=== PATIENT | female | born 1970 | race Caucasian/White ===

== ENCOUNTER 2019-04-14 19:27 | Emergency (ER) | payer MEDICARE, MEDICAID ==
[~2019-04-14] VITALS: Ht 170.2 cm; Wt 88.5 kg
[2019-04-14 20:22] LABS: BASO % 1 % (0-3); EOS # 0.2 x10^3/uL (0.0-0.7); EOS % 2 % (0-3); HEMATOCRIT 39.4 % (36.0-47.0); HEMOGLOBIN 13.2 g/dL (12.0-15.5); LYMPH # 0.9 x10^3/uL (1.0-4.8); LYMPH % 13 % (24-48); MEAN CORPUSCULAR HEMOGLOBIN 36 pg (25-35); MEAN CORPUSCULAR HGB CONC 34 g/dL (31-37); MEAN CORPUSCULAR VOLUME 106 fL (79-100); MONO # 0.9 x10^3/uL (0.0-1.1); MONO % 13 % (0-9); NEUT # 4.9 x10^3uL (1.8-7.7); NEUT % 71 % (31-73); PLATELET COUNT 125 x10^3/uL (140-400); RED BLOOD COUNT 3.72 x10^6/uL (3.50-5.40); RED CELL DISTRIBUTION WIDTH 16.3 % (11.5-14.5); WHITE BLOOD COUNT 6.9 x10^3/uL (4.0-11.0)
[2019-04-14 20:33] LABS: CALCIUM 9.3 mg/dL (8.5-10.1); CREATININE 4.6 mg/dL (0.6-1.0); GFR 10.3; POTASSIUM 4.1 mmol/L (3.5-5.1)
[2019-04-14 20:38] LABS: ALBUMIN 3.2 g/dL (3.4-5.0); ALBUMIN/GLOBULIN RATIO 0.7 (1.0-1.7); MAGNESIUM 1.8 mg/dL (1.8-2.4); TOTAL BILIRUBIN 0.4 mg/dL (0.2-1.0); TOTAL PROTEIN 7.8 g/dL (6.4-8.2)
[2019-04-14 20:47] LABS: CREATINE KINASE 74 U/L (26-192)
[2019-04-14] MEDS ORDERED: ERYT1OIN6 OP (20:56)
--- NOTE | 2019-04-14 20:56 | PHYS DOC ---
Past Medical History Past Medical History: Diabetes-Type II, Hypertension, Hypotension, Other Additional Past Medical Histor: PANCREAS TRANSPLANT Past Surgical History: Tonsillectomy, Other Additional Past Surgical Histo: PANCREAS TRANSPLANT Alcohol Use: None Drug Use: None Adult General Chief Complaint Chief Complaint: DIZZY/LIGHT HEADED HPI HPI Patient is a 48 year old [f__sex] who presents with [] Review of Systems Review of Systems Constitutional: Denies fever or chills [] Eyes: Denies change in visual acuity, redness, or eye pain [] HENT: Denies nasal congestion or sore throat [] Respiratory: Denies cough or shortness of breath [] Cardiovascular: No additional information not addressed in HPI [] GI: Denies abdominal pain, nausea, vomiting, bloody stools or diarrhea [] : Denies dysuria or hematuria [] Musculoskeletal: Denies back pain or joint pain [] Integument: Denies rash or skin lesions [] Neurologic: Denies headache, focal weakness or sensory changes [] Endocrine: Denies polyuria or polydipsia [] All other systems were reviewed and found to be within normal limits, except as documented in this note. Physical Exam Physical Exam Constitutional: Well developed, well nourished, no acute distress, non-toxic appearance. [] HENT: Normocephalic, atraumatic, bilateral external ears normal, oropharynx moist, no oral exudates, nose normal. [] Eyes: PERRLA, EOMI, conjunctiva normal, no discharge. [] Neck: Normal range of motion, no tenderness, supple, no stridor. [] Cardiovascular:Heart rate regular rhythm, no murmur [] Lungs & Thorax: Bilateral breath sounds clear to auscultation [] Abdomen: Bowel sounds normal, soft, no tenderness, no masses, no pulsatile masses. [] Skin: Warm, dry, no erythema, no rash. [] Back: No tenderness, no CVA tenderness. [] Extremities: No tenderness, no cyanosis, no clubbing, ROM intact, no edema. [] Neurologic: Alert and oriented X 3, normal motor function, normal sensory function, no focal deficits noted. [] Psychologic: Affect normal, judgement normal, mood normal. [] Current Patient Data Vital Signs Vital Signs Date Time Temp Pulse Resp B/P (MAP) Pulse Ox O2 Delivery O2 Flow Rate FiO2 5/31/19 19:56 97.9 79 16 102/64 (77) 94 Room Air 97.9 Lab Values Laboratory Tests Test 04/14/19 20:11 White Blood Count 6.9 x10^3/uL (4.0-11.0) Red Blood Count 3.72 x10^6/uL (3.50-5.40) Hemoglobin 13.2 g/dL (12.0-15.5) Hematocrit 39.4 % (36.0-47.0) Mean Corpuscular Volume 106 fL (79-100) H Mean Corpuscular Hemoglobin 36 pg (25-35) H Mean Corpuscular Hemoglobin Concent 34 g/dL (31-37) Red Cell Distribution Width 16.3 % (11.5-14.5) H Platelet Count 125 x10^3/uL (140-400) L Neutrophils (%) (Auto) 71 % (31-73) Lymphocytes (%) (Auto) 13 % (24-48) L Monocytes (%) (Auto) 13 % (0-9) H Eosinophils (%) (Auto) 2 % (0-3) Basophils (%) (Auto) 1 % (0-3) Neutrophils # (Auto) 4.9 x10^3uL (1.8-7.7) Lymphocytes # (Auto) 0.9 x10^3/uL (1.0-4.8) L Monocytes # (Auto) 0.9 x10^3/uL (0.0-1.1) Eosinophils # (Auto) 0.2 x10^3/uL (0.0-0.7) Basophils # (Auto) 0.0 x10^3/uL (0.0-0.2) Sodium Level 141 mmol/L (136-145) Potassium Level 4.1 mmol/L (3.5-5.1) Chloride Level 97 mmol/L (98-107) L Carbon Dioxide Level 37 mmol/L (21-32) H Anion Gap 7 (6-14) Blood Urea Nitrogen 33 mg/dL (7-20) H Creatinine 4.6 mg/dL (0.6-1.0) H Estimated GFR (Cockcroft-Gault) 10.3 BUN/Creatinine Ratio 7 (6-20) Glucose Level 145 mg/dL (70-99) H Calcium Level 9.3 mg/dL (8.5-10.1) Magnesium Level 1.8 mg/dL (1.8-2.4) Total Bilirubin 0.4 mg/dL (0.2-1.0) Aspartate Amino Transferase (AST) 21 U/L (15-37) Alanine Aminotransferase (ALT) 19 U/L (14-59) Alkaline Phosphatase 83 U/L (46-116) Creatine Kinase 74 U/L (26-192) Creatine Kinase MB (Mass) 1.7 ng/mL (0.0-3.6) Creatine Kinase MB Relative Index % (0-4) Troponin I Quantitative 0.017 ng/mL (0.000-0.055) Total Protein 7.8 g/dL (6.4-8.2) Albumin 3.2 g/dL (3.4-5.0) L Albumin/Globulin Ratio 0.7 (1.0-1.7) L Laboratory Tests 04/14/19 20:11 Laboratory Tests 04/14/19 20:11 EKG EKG @1931 NSR at 79bpm, nonspecific t wave inversion aVL Radiology/Procedures Radiology/Procedures [] Course & Med Decision Making Course & Med Decision Making Pertinent Labs and Imaging studies reviewed. (See chart for details) [] Dragon Disclaimer Dragon Disclaimer This electronic medical record was generated, in whole or in part, using a voice recognition dictation system. Departure Departure Impression: Primary Impression: Weakness Additional Impression: Conjunctivitis Disposition: 01 HOME, SELF-CARE Condition: STABLE Referrals: UNKNOWN PCP NAME (PCP) Patient Instructions: Conjunctivitis (Viral and Bacterial), Weakness, [id number] Scripts Erythromycin Base (Erythromycin) 1 Gm Oint...g. 0.25 INCH [facility] 5 Days[facility] Prov: ISABELA MENDEZ DO 04/14/19 Problem Qualifiers Additional Impression: Conjunctivitis Conjunctivitis type: acute Acute conjunctivitis type: unspecified Laterality: left Qualified Codes: H10.32 - Unspecified acute conjunctivitis, left eye ISABELA MENDEZ DO April 14, 2019 20:56
[2019-04-14 21:00] VITALS: BP 106/63
[2019-04-14] MEDS ORDERED: ERYTHROMYCIN 0.5% OPHTH OINTMENT 1GM TUBE. OS ONE (21:15)
--- NOTE | 2019-04-15 10:31 | EKG ---
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
== END 2019-04-14 21:25 | disposition home or self-care (01) ==
LOC: ER 19:27
DX: H10.32 Unspecified acute conjunctivitis, left eye (principal); R53.1 Weakness; R42 Dizziness and giddiness; E11.9 Type 2 diabetes mellitus without complications; I10 Essential (primary) hypertension
CPT/HCPCS: 36415; 80053; 82553; 83735; 84484; 85025; 93005; 99285-25